=== PATIENT | female | born 1940 | race Caucasian/White ===

== ENCOUNTER 2016-10-13 06:56 | Day surgery (SDC) | payer MEDICARE, OTHER ==
[~2016-10-13 06:56] MED LIST: Cefuroxime 10 MG/ML SYRINGE EYELF SCH; Lidocaine 1% PF 2 ML SDV INJECT SCH; Pilocarpine 4% Ophth Soln 15 ML Bot EYELF SCH; Proparacaine 0.5% Ophth Soln 15 ML Bottle EYEBOTH SCH; Tetracaine 0.5% 2 ML Bottle EYELF SCH
[2016-10-13] MEDS: Ofloxacin 0.3% Ophth Soln 5 ML Bottle EYELF SCH ×3 (07:12→08:19)
[2016-10-13] MEDS: Apraclonidine 0.5% Ophth Soln 5 ML Bot EYELF SCH ×3 (07:17→08:19)
[2016-10-13] MEDS: Phenylephrine 2.5% Ophth Soln 2 ML Bot EYELF SCH ×5 (07:21→08:01)
--- NOTE | 2016-10-13 07:30 | PCM.PREANE ---
Preanesthetic Assessment - Anesthesia/Transfusion/Family Hx Anesthesia History: Prior Anesthesia Without Reaction Type of Anesthesia Reaction: Unknown, Other (see below) Type of Transfusion Reactions: Reports: Unknown - Review of Systems General: No Symptoms Pulmonary: No Symptoms Cardiovascular: No Symptoms (high cholesterol) Gastrointestinal: No symptoms Neurological: No Symptoms Other: Reports: None - Physical Assessment NPO Status Date: 10/12/16 NPO Status Time: 22:00 Pulse: 76 O2 Sat by Pulse Oximetry: 94 Respiratory Rate: 16 Blood Pressure: 138/75 Vital Signs: Last Vital Signs Temp 36.4 C 10/13/16 07:05 Pulse 76 10/13/16 07:05 Resp 16 10/13/16 07:05 BP 138/75 10/13/16 07:05 Pulse Ox 94 L 10/13/16 07:05 Height: 1.6 m Weight: 65.771 kg ASA Class: 2 Mental Status: Alert & Oriented x3 Airway Class: Mallampati = 2 Dentition: Reports: Normal Dentition ROM/Head Extension: Full Lungs: Clear to auscultation, Normal respiratory effort Cardiovascular: Regular Rate, Regular Rhythm - Allergies Allergies/Adverse Reactions: Allergies Allergy/AdvReac Type Severity Reaction Status Date / Time silicone Allergy Intermediate Rash Verified 10/12/16 14:01 Sulfa (Sulfonamide Allergy Unknown Rash Verified 10/12/16 14:01 Antibiotics) azithromycin [From Zithromax] AdvReac Intermediate Nausea Verified 10/12/16 14: 01 - Blood Blood Available: No Product(s) Available: None - Anesthesia Plan Pre-Op Medication Ordered: None Beta Roshni: Timolol Med Last Dose Date: 10/12/16 Med Last Dose Time: 18:00 - Acknowledgements Anesthesia Type Planned: MAC Pt an Appropriate Candidate for the Planned Anesthesia: Yes Alternatives and Risks of Anesthesia Discussed w Pt/Guardian: Yes Pt/Guardian Understands and Agrees with Anesthesia Plan: Yes PreAnesthesia Questionnaire HEENT History: Reports: Glaucoma Cardiovascular History: Reports: High cholesterol Gastrointestinal History: Reports: Diverticulosis Other OB/BYN History: hysterectomy Musculoskeletal History: Reports: Neck pain, chronic, Other (see below) Other Musculoskeletal History: Bone spurs so next was fused - Past Surgical History Other Musculoskeletal Surgeries/Procedures:: C spinal fusion - SUBSTANCE USE Smoking Status *Q: Former Smoker Tobacco Use Within Last Twelve Months: Cigarettes Second Hand Smoke Exposure: No Days Per Week of Alcohol Use: 0 Number of Drinks Per Day: 1 Total Drinks Per Week: 0 Recreational Drug Use History: No - HOME MEDS Home Medications: Home Meds Calcium Carb/D3/Mag AA Chelate [Coral Calcium Capsule] 1,000 mg PO BID 04/07/15 [History] Flaxseed Oil 1,000 mg PO DAILY 04/07/15 [History] Hypromellose [Systane Gel] 1 drop EYEBOTH BEDTIME 04/07/15 [History] Lutein 20 mg PO DAILY 04/07/15 [History] Multivitamin with Minerals [Multiple Vitamin] 1 tab PO DAILY 04/07/15 [History] [place]-3 Fatty Acids [[place]-3] 2,000 mg PO DAILY 04/07/15 [History] Timolol Maleate [Timoptic 0.25% Ophth Soln] 1 drop EYEBOTH DAILY 04/07/15 [ History] Ubidecarenone [Co Q-10] 200 mg PO BEDTIME 04/08/15 [History] [place] Q Plus 2 tab PO DAILY 02/12/16 [History] - CURRENT (IN HOUSE) MEDS Current Meds: Current Medications Apraclonidine HCl (Iopidine 0.5% Ophth Soln) 0 ml EYELF ASDIRECTED KACIE Stop: 10/13/16 18:00 Last Admin: 10/13/16 07:17 Dose: 1 drop Cefuroxime Sodium (Zinacef) 0 mg EYELF ASDIRECTED KACIE Stop: 10/13/16 18:00 Lidocaine HCl (Xylocaine-Mpf 1%) 2 ml INJECT ASDIRECTED KACIE Stop: 10/13/16 18:00 Ofloxacin (Ocuflox 0.3% Ophth Soln) 0 ml EYELF ASDIRECTED KACIE Stop: 10/13/16 18:00 Last Admin: 10/13/16 07:12 Dose: 1 drop Phenylephrine HCl ([place]-Synephrine 2.5% Ophth Soln) 0 ml EYELF ASDIRECTED KACIE Stop: 10/13/16 18:00 Last Admin: 10/13/16 07:21 Dose: 1 drop Pilocarp[place] HCl (Pilocar 4% Ophth Soln) 0 ml EYELF ASDIRECTED KACIE Stop: 10/13/16 18:00 Proparacaine HCl (Proparacaine 0.5% Ophth Soln) 0 ml EYEBOTH ASDIRECTED KACIE Stop: 10/13/16 18:00 Tetracaine (Pontocaine 0.5% Ophth Drops) 0 ml EYELF ASDIRECTED KACIE Stop: 10/13/16 18:00 Tropicamide (Mydriacyl 1% Ophth Soln) 0 ml EYELF ASDIRECTED KACIE Stop: 10/13/16 18:00 Last Admin: 10/13/16 07:25 Dose: 1 drop Preanesthetic Assessment - ANESTHESIA/TRANSFUSION/FAMILY HX Anesthesia/Transfusion History: No Prior Transfusion(s), Prior Anesthesia (no problems) Family History of Anesthesia Reaction: No - PHYSICAL ASSESSMENT O2 Sat by Pulse Oximetry: 94 RR: 16 Vital Signs: Last Vital Signs Temp 36.4 C 10/13/16 07:05 Pulse 76 10/13/16 07:05 Resp 16 10/13/16 07:05 BP 138/75 10/13/16 07:05 Pulse Ox 94 L 10/13/16 07:05 Height: 1.6 m Weight: 65.771 kg NPO Status Date: 10/12/16 NPO Status Time: 22:00 - ALLERGIES Allergies/Adverse Reactions: Allergies Allergy/AdvReac Type Severity Reaction Status Date / Time silicone Allergy Intermediate Rash Verified 10/12/16 14:01 Sulfa (Sulfonamide Allergy Unknown Rash Verified 10/12/16 14:01 Antibiotics) azithromycin [From Zithromax] AdvReac Intermediate Nausea Verified 10/12/16 14: 01
--- NOTE | 2016-10-13 08:31 | PCM48HPAN ---
Post Anesthesia Note - EVALUATION WITHIN 48HRS OF ANESTHETIC Vital Signs in Normal Range: Yes Patient Participated in Evaluation: Yes Respiratory Function Stable: Yes Airway Patent: Yes Cardiovascular Function Stable: Yes Hydration Status Stable: Yes Pain Control Satisfactory: Yes Nausea and Vomiting Control Satisfactory: Yes Mental Status Recovered: Yes
[2016-10-13 08:45] VITALS: BP 130/74
== END 2016-10-13 08:30 | disposition home or self-care (01) ==
LOC: JD.SDS 06:56
PROVIDERS: ATTEND Ophthalmology
DX: H26.9 Unspecified cataract (principal); E78.00 Pure hypercholesterolemia, unspecified; Z88.1 Allergy status to other antibiotic agents; Z88.2 Allergy status to sulfonamides; Z88.8 Allergy status to other drugs, medicaments and biological substances; Z90.49 Acquired absence of other specified parts of digestive tract; Z90.710 Acquired absence of both cervix and uterus; Z98.890 Other specified postprocedural states; Z79.899 Other long term (current) drug therapy; Z87.891 Personal history of nicotine dependence
CPT/HCPCS: 66984; J0697; A9270-GY; C1780

== ENCOUNTER 2016-11-10 07:50 | Day surgery (SDC) | payer MEDICARE, OTHER ==
[~2016-11-10 07:50] MED LIST changes: -Cefuroxime 10 MG/ML SYRINGE EYELF SCH; +Cefuroxime 10 MG/ML SYRINGE EYERT SCH; -Pilocarpine 4% Ophth Soln 15 ML Bot EYELF SCH; +Pilocarpine 4% Ophth Soln 15 ML Bot EYERT SCH; -Tetracaine 0.5% 2 ML Bottle EYELF SCH; +Tetracaine 0.5% 2 ML Bottle EYERT SCH
[2016-11-10] MEDS: Ofloxacin 0.3% Ophth Soln 5 ML Bottle EYERT SCH ×3 (08:07→09:42)
[2016-11-10] MEDS: Brimonidine 0.2% Ophth Soln 5 ML Bottle EYERT SCH ×3 (08:11→09:42)
[2016-11-10] MEDS: Phenylephrine 2.5% Ophth Soln 2 ML Bot EYERT SCH ×5 (08:15→09:27)
--- NOTE | 2016-11-10 08:29 | PCM.PREANE ---
Preanesthetic Assessment - Procedure Proposed Procedure: Right eye cataract extraction with implant - Anesthesia/Transfusion/Family Hx Anesthesia History: Prior Anesthesia Without Reaction Family History of Anesthesia Reaction: No Transfusion History: No Prior Transfusion(s) Type of Transfusion Reactions: Reports: Unknown Intubation History: Unknown - Review of Systems General: No Symptoms Pulmonary: No Symptoms Cardiovascular: No Symptoms Gastrointestinal: No symptoms Neurological: No Symptoms Other: Reports: None - Physical Assessment NPO Status Date: 11/09/16 NPO Status Time: 22:30 O2 Sat by Pulse Oximetry: 95 Respiratory Rate: 16 Vital Signs: Last Vital Signs Temp 36.6 C 11/10/16 07:50 Pulse 71 11/10/16 07:50 Resp 16 11/10/16 07:50 BP 136/75 11/10/16 07:50 Pulse Ox 95 11/10/16 07:50 Height: 1.6 m Weight: 65.771 kg ASA Class: 2 Mental Status: Alert & Oriented x3 Airway Class: Mallampati = 1 Dentition: Reports: Normal Dentition Thyro-Mental Finger Breadths: 3 Mouth Opening Finger Breadths: 5 ROM/Head Extension: Full Lungs: Clear to auscultation, Normal respiratory effort Cardiovascular: Regular Rate, Regular Rhythm - Allergies Allergies/Adverse Reactions: Allergies Allergy/AdvReac Type Severity Reaction Status Date / Time silicone Allergy Intermediate Rash Verified 11/09/16 13:04 Sulfa (Sulfonamide Allergy Unknown Rash Verified 11/09/16 13:04 Antibiotics) azithromycin [From Zithromax] AdvReac Intermediate Nausea Verified 11/09/16 13: 04 - Blood Blood Available: No - Anesthesia Plan Pre-Op Medication Ordered: None - Acknowledgements Anesthesia Type Planned: MAC Pt an Appropriate Candidate for the Planned Anesthesia: Yes Alternatives and Risks of Anesthesia Discussed w Pt/Guardian: Yes Pt/Guardian Understands and Agrees with Anesthesia Plan: Yes PreAnesthesia Questionnaire HEENT History: Reports: Glaucoma Cardiovascular History: Reports: High cholesterol Gastrointestinal History: Reports: Diverticulosis Other OB/BYN History: hysterectomy Musculoskeletal History: Reports: Neck pain, chronic, Other (see below) Other Musculoskeletal History: Bone spurs so next was fused Neurological History: Reports: None Psychiatric History: Reports: None Endocrine/Metabolic History: Reports: None 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 Immunologic History: Reports: None - Past Surgical History Other Musculoskeletal Surgeries/Procedures:: C spinal fusion Other Surgical History Comment: Hysterectomy, back surgery, appendectomy - SUBSTANCE USE Smoking Status *Q: Former Smoker Tobacco Use Within Last Twelve Months: Cigarettes Second Hand Smoke Exposure: No Days Per Week of Alcohol Use: 0 Number of Drinks Per Day: 1 Total Drinks Per Week: 0 Recreational Drug Use History: No - HOME MEDS Home Medications: Home Meds Calcium Carb/D3/Mag AA Chelate [Coral Calcium Capsule] 1,000 mg PO BID 04/07/15 [History] Flaxseed Oil 1,000 mg PO DAILY 04/07/15 [History] Hypromellose [Systane Gel] 1 drop EYEBOTH BEDTIME 04/07/15 [History] Lutein 20 mg PO DAILY 04/07/15 [History] Multivitamin with Minerals [Multiple Vitamin] 1 tab PO DAILY 04/07/15 [History] [place]-3 Fatty Acids [[place]-3] 2,000 mg PO DAILY 04/07/15 [History] Timolol Maleate [Timoptic 0.25% Ophth Soln] 1 drop EYEBOTH DAILY 04/07/15 [ History] [place] Q Plus 2 tab PO DAILY 02/12/16 [History] - CURRENT (IN HOUSE) MEDS Current Meds: Current Medications Brimonidine Tartrate (Alphagan 0.2% Ophth Soln) 1 ml EYERT ASDIRECTED KACIE Stop: 11/10/16 18:00 Last Admin: 11/10/16 08:11 Dose: 1 drop Cefuroxime Sodium (Zinacef) 0 mg EYERT ASDIRECTED KACIE Stop: 11/10/16 18:00 Lidocaine HCl (Xylocaine-Mpf 1%) 1 ml INJECT ASDIRECTED KACIE Stop: 11/10/16 18:00 Ofloxacin (Ocuflox 0.3% Ophth Soln) 0 ml EYERT ASDIRECTED KACIE Stop: 11/10/16 18:00 Last Admin: 11/10/16 08:07 Dose: 1 drop Phenylephrine HCl (Arron-Synephrine 2.5% Ophth Soln) 0 ml EYERT ASDIRECTED KACIE Stop: 11/10/16 18:00 Last Admin: 11/10/16 08:23 Dose: 1 drop Pilocarpine HCl (Pilocar 4% Ophth Soln) 0 ml EYERT ASDIRECTED KACIE Stop: 11/10/16 18:00 Proparacaine HCl (Proparacaine 0.5% Ophth Soln) 0 ml EYEBOTH ASDIRECTED KACIE Stop: 11/10/16 18:00 Tetracaine (Pontocaine 0.5% Ophth Drops) 0 ml EYERT ASDIRECTED KACIE Stop: 11/10/16 18:00 Tropicamide (Mydriacyl 1% Ophth Soln) 0 ml EYERT ASDIRECTED KACIE Stop: 11/10/16 18:00 Last Admin: 11/10/16 08:19 Dose: 1 drop
[2016-11-10 10:06] VITALS: BP 139/71
== END 2016-11-10 10:00 | disposition home or self-care (01) ==
LOC: JD.SDS 07:50
PROVIDERS: ATTEND Ophthalmology
PROC: 08RJ3JZ Replacement of Right Lens with Synthetic Substitute, Percutaneous Approach (ICD-10-PCS; principal; 2016-11-10)
DX: H25.811 Combined forms of age-related cataract, right eye (principal); H40.1234 Low-tension glaucoma, bilateral, indeterminate stage; H16.103 Unspecified superficial keratitis, bilateral; H16.223 Keratoconjunctivitis sicca, not specified as Sjogren's, bilateral; H52.31 Anisometropia; E78.00 Pure hypercholesterolemia, unspecified; Z98.1 Arthrodesis status; Z98.42 Cataract extraction status, left eye; Z96.1 Presence of intraocular lens; Z90.49 Acquired absence of other specified parts of digestive tract; Z90.710 Acquired absence of both cervix and uterus; Z98.890 Other specified postprocedural states; Z87.891 Personal history of nicotine dependence; Z83.511 Family history of glaucoma; Z83.518 Family history of other specified eye disorder; Z88.1 Allergy status to other antibiotic agents; Z88.2 Allergy status to sulfonamides; Z91.048 Other nonmedicinal substance allergy status; Z79.899 Other long term (current) drug therapy
CPT/HCPCS: 66984; A9270; J0697; C1780

== ENCOUNTER 2018-10-21 00:27 | Emergency (ER) | payer MEDICARE, OTHER ==
[2018-10-21 00:34] VITALS: BP 207/93
[2018-10-21] MEDS ORDERED: Ondansetron 4 MG/2 ML SDV IVPUSH ONE (00:43)
[2018-10-21] MEDS ORDERED: Aspirin 81 MG Tab.Chew PO ONE (00:43)
[2018-10-21] MEDS ORDERED: Sodium Chloride 0.9% 10 ML Syringe FLUSH PRN (00:43)
--- NOTE | 2018-10-21 00:49 | EDM.PDOC ---
ED HPI GENERAL MEDICAL PROBLEM - General Chief Complaint: Chest Pain Stated Complaint: CHEST PAIN Time Seen by Provider: 10/21/18 00:32 Source of Information: Reports: Patient History Limitations: Reports: No Limitations - History of Present Illness INITIAL COMMENTS - FREE TEXT/NARRATIVE: The patient presents with chest pain. She said this woke her up about 45 minutes ago. She went to bed feeling fine other then some cold symptoms with congestion and runny nose. She does not have much of a cough. She has some shortness of breath with it and nausea. She has no fever or chills. She was doing some work her basement the other day. They have water damage. She was pushing water and developed some chest pain. She has never had an DE before. She has a history of hypercholesterolemia but no diabetes or hypertension. She has no abdominal pain, vomiting, diarrhea or dysuria. She did not take any aspirin. Onset: Sudden Duration: Minutes: (45) Location: Reports: Chest Quality: Reports: Sharp Severity: Moderate (Better now) Improves with: Reports: None Worsens with: Reports: None Associated Symptoms: Reports: Chest Pain, Nausea/Vomiting, Shortness of Breath. Denies: Cough, Fever/Chills, Headaches Middle Chest Pain Score (Numeric/FACES): 4 - Related Data Allergies Allergy/AdvReac Type Severity Reaction Status Date / Time silicone Allergy Intermediate Rash Verified 10/21/18 00:34 Sulfa (Sulfonamide Allergy Unknown Rash Verified 10/21/18 00:34 Antibiotics) azithromycin [From Zithromax] AdvReac Intermediate Nausea Verified 10/21/18 00: 34 Home Meds: Home Meds Calcium Carb/D3/Mag AA Chelate [Coral Calcium Capsule] 1,000 mg PO BID 04/07/15 [History] Flaxseed Oil 1,000 mg PO DAILY 04/07/15 [History] Hypromellose [Systane Gel] 1 drop EYEBOTH BEDTIME 04/07/15 [History] Lutein 20 mg PO DAILY 04/07/15 [History] Multivitamin with Minerals [Multiple Vitamin] 1 tab PO DAILY 04/07/15 [History] [place]os[place]-3 Fatty Acids [Closplint-3] 2,000 mg PO DAILY 04/07/15 [History] Timolol Maleate [Timoptic 0.25% Ophth Soln] 1 drop EYEBOTH DAILY 04/07/15 [ History] [place] Q Plus 2 tab PO DAILY 02/12/16 [History] Past Medical History HEENT History: Reports: Glaucoma Cardiovascular History: Reports: High Cholesterol Gastrointestinal History: Reports: Diverticulosis Other [employer] WORK[employer] History: hysterectomy Musculoskeletal History: Reports: Neck Pain, Chronic, Other (See Below) Other Musculoskeletal History: Bone spurs so next was fused Neurological History: Reports: None Psychiatric History: Reports: None Endocrine/Metabolic History: Reports: None 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 Immunologic History: Reports: None - Past Surgical History HEENT Surgical History: Reports: Other (See Below) GI Surgical History: Reports: Appendectomy, Colonoscopy, Polypectomy, Other ( See Below) Musculoskeletal Surgical History: Reports: Other (See Below) Social & Family History - Tobacco Use Smoking Status *Q: Former Smoker Used Tobacco, but Quit: Yes Month/Year Tobacco Last Used: 30 years - Caffeine Use Caffeine Use: Reports: Coffee - Recreational Drug Use Recreational Drug Use: No ED ROS GENERAL - Review of Systems Review Of Systems: See Below Constitutional: Reports: No Symptoms HEENT: Reports: No Symptoms Respiratory: Reports: Shortness of Breath Cardiovascular: Reports: Chest Pain Endocrine: Reports: No Symptoms GI/Abdominal: Reports: Nausea. Denies: Abdominal Pain, Diarrhea, Vomiting : Reports: No Symptoms Musculoskeletal: Reports: No Symptoms Skin: Reports: No Symptoms Neurological: Reports: No Symptoms ED EXAM, GENERAL - Physical Exam Exam: See Below Exam Limited By: No Limitations General Appearance: Alert, No Apparent Distress Ears: Normal External Exam Nose: Normal Inspection Head: Atraumatic, Normocephalic Neck: Normal Inspection Respiratory/Chest: No Respiratory Distress, Lungs Clear, Normal Breath Sounds Cardiovascular: Regular Rate, Rhythm, No Edema, No Murmur GI/Abdominal: Soft, Non-Tender, No Organomegaly, No Mass Back Exam: Normal Inspection Extremities: Normal Inspection Neurological: Alert, Oriented, No Motor/Sensory Deficits EKG INTERPRETATION EKG Date: 10/21/18 Time: 00:29 Rhythm: NSR Rate (Beats/Min): 65 [place]: Normal P-Wave: Present QRS: Normal ST-T: Normal QT: Normal Course - Vital Signs Last Recorded V/S: Last Vital Signs Temp 97.6 F 10/21/18 00:32 Pulse 70 10/21/18 00:32 Resp 16 10/21/18 00:32 BP 207/93 H 10/21/18 00:32 Pulse Ox 97 10/21/18 00:32 - Orders/Labs/Meds Orders: Active Orders 24 hr Category Date Time Status Cardiac Monitoring [RC] . DIRECTED Care 10/21/18 00:43 Active EKG Documentation Completion [RC] ASDIRECTED Care 10/21/18 03:54 Active EKG Documentation Completion [RC] STAT Care 10/21/18 00:43 Active Oxygen Therapy [RC] PRN Care 10/21/18 00:43 Active Peripheral IV Care [RC] . DIRECTED Care 10/21/18 00:43 Active Chest 1V Frontal [CR] Stat Exams 10/21/18 00:43 Taken Sodium Chloride 0.9% [Saline Flush] Med 10/21/18 00:43 Active 10 ml FLUSH ASDIRECTED PRN ED Antiemetic Medication Reflex [OM.PC] Stat Oth 10/21/18 00:43 Ordered Peripheral IV Insertion Adult [OM.PC] Stat Oth 10/21/18 00:43 Ordered EKG 12 Lead [EK] Stat Ther 10/21/18 03:54 Ordered Medication Orders Sodium Chloride (Saline Flush) 10 ml FLUSH ASDIRECTED PRN PRN Reason: Keep Vein Open Last Admin: 10/21/18 00:46 Dose: 10 ml Labs: Laboratory Tests 10/21/18 10/21/18 10/21/18 Range/Units 00:35 00:35 03:10 WBC 8.42 (3.98-10.04) K/mm3 RBC 5.07 (3.98-5.22) M/mm3 Hgb 15.3 (11.2-15.7) gm/L Hct 47.6 H (34.1-44.9) % MCV 93.9 (79.4-94.8) fl MCH 30.2 (25.6-32.2) pg MCHC 32.1 L (32.2-35.5) g/dl RDW Std Deviation 47.1 H (36.4-46.3) fL Plt Count 286 (182-369) K/mm3 MPV 9.4 (9.4-12.3) fl Neut % (Auto) 49.7 (34.0-71.1) % Lymph % (Auto) 36.0 (19.3-51.7) % [place] % (Auto) 12.2 (4.7-12.5) % Eos % (Auto) 1.4 (0.7-5.8) Baso % (Auto) 0.5 (0.1-1.2) % Neut # (Auto) 4.18 (1.56-6.13) K/mm3 Lymph # (Auto) 3.03 (1.18-3.74) K/mm3 [place] # (Auto) 1.03 H (0.24-0.36) K/mm3 Eos # (Auto) 0.12 (0.04-0.36) K/mm3 Baso # (Auto) 0.04 (0.01-0.08) K/mm3 Sodium 142 (136-145) mEq/L Potassium 3.5 (3.5-5.1) mEq/L Chloride 105 (98-107) mEq/L Carbon Dioxide 28 (21-32) mEq/L Anion Gap 12.5 (5-15) BUN 11 (7-18) mg/dL Creatinine 1.1 H (0.55-1.02) mg/dL Est Cr Clr Drug Dosing 35.99 mL/min Estimated GFR (MDRD) 48 (>60) mL/min BUN/Creatinine Ratio 10.0 L (14-18) Glucose 125 H (83-115) mg/dL Calcium 9.2 (8.5-10.1) mg/dL Total Bilirubin 0.3 (0.2-1.0) mg/dL AST 28 (15-37) U/L ALT 36 (14-59) U/L Alkaline Phosphatase 106 (46-116) U/L Troponin I < 0.017 0.115 H* (0.00-0.056) ng/mL Total Protein 8.2 (6.4-8.2) g/dl Albumin 3.5 (3.4-5.0) g/dl Globulin 4.7 gm/dL Albumin/Globulin Ratio 0.7 L (1-2) Meds: Medications Generic Name Dose Route Start Last Admin Trade Name Freq PRN Reason Stop Dose Admin Sodium Chloride 10 ml 10/21/18 00:43 10/21/18 00:46 Saline Flush FLUSH 10 ml ASDIRECTED PRN Administration Keep Vein Open Discontinued Medications Generic Name Dose Route Start Last Admin Trade Name Freq PRN Reason Stop Dose Admin Aspirin 324 mg 10/21/18 00:43 10/21/18 00:53 Aspirin PO 10/21/18 00:44 324 mg ONETIME ONE Administration Al Hydroxide/Mg Hydroxide 30 0 ml 10/21/18 01:58 10/21/18 02:09 ml/ Lidocaine HCl 15 ml PO 10/21/18 01:59 45 ml ONETIME ONE Administration Famotidine 20 mg 10/21/18 01:58 10/21/18 02:10 Pepcid IVPUSH 10/21/18 01:59 20 mg ONETIME ONE Administration Ondansetron HCl 4 mg 10/21/18 00:43 10/21/18 00:52 Zofran IVPUSH 10/21/18 00:44 4 mg ONETIME ONE Administration - Re-Assessments/Exams Free Text/Narrative Re-Assessment/Exam: 10/21/18 00:48 I ordered an IV saline lock, EKG, CXR, labs, zofran 4mg IV, and aspirin. Her EKG shows a NSR with no acute changes. 10/21/18 04:03 Her CBC looks good. Her creatinine is slightly elevated at 1.1. Her GFR was a little low at 48. Her glucose was elevated at 125. Her troponin was negative. She still had some discomfort. I ordered some pepcid 20mg IV and a GI cocktail. I will kept the patient here for a 3 hour troponin and that was elevated at 0.115. She still has a little pain. So I ordered a nitro drip and a heparin bolus and drip. She is having a nonSTEMI and will need to go down to [place]. The patient request [facility]. I have called down there and talked with the hospitalist Dr Matthews and he accepted the patient. I also talked with the ER doctor Dr Blanton. I will transport the patient by ground ambulance. Departure - Departure Time of Disposition: 04:30 Disposition: DC/Tfer to Acute Hospital 02 Reason for Transfer *Q: Other Condition: Serious Clinical Impression: Non-STEMI (non-ST elevated myocardial infarction) Referrals: Raoul Osuna MD [Primary Care Provider] - Forms: ED Department Discharge - My Orders Last 24 Hours: My Active Orders 10/21/18 00:43 Cardiac Monitoring [RC] . DIRECTED EKG Documentation Completion [RC] STAT Oxygen Therapy [RC] PRN Peripheral IV Care [RC] . DIRECTED Chest 1V Frontal [CR] Stat Sodium Chloride 0.9% [Saline Flush] 10 ml FLUSH ASDIRECTED PRN ED Antiemetic Medication Reflex [OM.PC] Stat Peripheral IV Insertion Adult [OM.PC] Stat 10/21/18 03:54 EKG Documentation Completion [RC] ASDIRECTED EKG 12 Lead [EK] Stat - Assessment/Plan Last 24 Hours: My Active Orders 10/21/18 00:43 Cardiac Monitoring [RC] . DIRECTED EKG Documentation Completion [RC] STAT Oxygen Therapy [RC] PRN Peripheral IV Care [RC] . DIRECTED Chest 1V Frontal [CR] Stat Sodium Chloride 0.9% [Saline Flush] 10 ml FLUSH ASDIRECTED PRN ED Antiemetic Medication Reflex [OM.PC] Stat Peripheral IV Insertion Adult [OM.PC] Stat 10/21/18 03:54 EKG Documentation Completion [RC] ASDIRECTED EKG 12 Lead [EK] Stat
[2018-10-21] MEDS ORDERED: Alum Hydrox/Mag Hydrox/Simeth 30 ML, Lidocaine 2% 15 ML PO ONE ×2 (01:58)
[2018-10-21] MEDS ORDERED: Famotidine 20 MG/2 ML SDV IVPUSH ONE (01:58)
[2018-10-21] MEDS ORDERED: Heparin Sodium 5,000 Units/ML Vial IVPUSH ONE (04:06)
[2018-10-21] MEDS ORDERED: Heparin Sodium/D5W 25,000 UNITS/500 ML BAG IV SCH (04:15)
[2018-10-21] MEDS ORDERED: Nitroglycerin/D5W 25 MG/250 ML BOTTLE IV SCH ×2 (04:15→04:30)
--- NOTE | 2018-10-21 08:54 | CR ---
Chest: Frontal view of the chest was obtained. Comparison: Prior chest x-ray of 04/07/15. Heart size is normal. Slight tortuosity of the thoracic aorta is seen. Lungs show no acute parenchymal change. Previous cervical spine surgery is noted. Impression: 1. Nothing acute is seen on frontal chest x-ray. Diagnostic code #2
== END 2018-10-21 05:02 ==
LOC: JD.ED 00:27
DX: I21.4 Non-ST elevation (NSTEMI) myocardial infarction (principal); E78.00 Pure hypercholesterolemia, unspecified; Z79.899 Other long term (current) drug therapy; Z88.2 Allergy status to sulfonamides; Z88.1 Allergy status to other antibiotic agents; Z87.891 Personal history of nicotine dependence; Z91.09 Other allergy status, other than to drugs and biological substances
CPT/HCPCS: 36415; 71045; 80053; 84484; 85025; 93005; 96365; 96375; 99285; A9270; J1644; J2405; J3490; 93010

== ENCOUNTER 2024-12-06 15:41 | Emergency (ER) | payer MEDICARE ==
[2024-12-06 16:32] VITALS: PULSE 87
[2024-12-06 17:12] LABS: BASOPHILS PERCENT AUTO 0.2 % (0.0-1.0); EOSINOPHILS PERCENT AUTO 0.2 % (0.0-6.0); HEMATOCRIT 40.8 % (37.0-47.0); HEMOGLOBIN 13.4 gm/dl (12.0-16.0); IMMATURE GRAN PERCENT AUTO 1.6 % (0.0-0.4); LYMPHOCYTES ABSOLUTE AUTO 0.3 K/mm3 (1.0-4.8); LYMPHOCYTES PERCENT AUTO 5.3 % (24.0-44.0); MEAN CORPUSCULAR HEMOGLOBIN 30.5 pg (28.0-32.0); MEAN CORPUSCULAR HGB CONC 32.8 g/dl (32.0-36.0); MEAN CORPUSCULAR VOLUME 92.7 fl (83.0-99.0); MEAN PLATELET VOLUME 9.3 fl (9.4-12.3); MONOCYTES ABSOLUTE AUTO 0.4 K/mm3 (0.0-0.8); MONOCYTES PERCENT AUTO 5.9 % (0.0-8.0); NEUTROPHILS ABSOLUTE AUTO 5.5 K/mm3 (1.8-7.7); NEUTROPHILS PERCENT AUTO 86.8 % (41.0-71.0); PLATELET COUNT,PLT 237 K/mm3 (150-400); WHITE BLOOD CELL COUNT,WBC 6.27 K/mm3 (3.9-11.3)
[2024-12-06] MEDS: Acetaminophen 325 MG Tab PO ONE (17:12)
[2024-12-06] MEDS: Sodium Chloride 0.9% 500 ML IV ONE (17:12)
[2024-12-06] MEDS: Ondansetron 4 MG/2 ML SDV IVPUSH ONE (17:13)
[2024-12-06 17:27] LABS: APPEARANCE,URINE CLEAR (Clear); BILIRUBIN,URINE NEGATIVE (Negative); COLOR,URINE YELLOW (Yellow); GLUCOSE,URINE NEGATIVE (Negative); KETONES,URINE NEGATIVE (Negative); LEUKOCYTE ESTERASE,URINE TRACE (Negative); NITRITE,URINE NEGATIVE (Negative); OCCULT BLOOD,URINE TRACE-INTACT (Negative); PROTEIN,URINE 1+ (Negative); UROBILINOGEN,URINE 0.2 (0.2-1.0)
[2024-12-06 17:30] LABS: A/G RATIO 0.8 (1-2); ALANINE AMINOTRANSFERASE,ALT 27 U/L (14-59); ALBUMIN 3.3 g/dl (3.4-5.0); ALKALINE PHOSPHATASE 74 U/L (46-116); ANION GAP 12.9 (5-15); ASPARTATE AMNIOTRANSFERASE,AST 27 U/L (15-37); BILIRUBIN TOTAL 0.4 mg/dL (0.2-1.0); BLOOD UREA NITROGEN,BUN 12 mg/dL (7-18); CALCIUM 8.5 mg/dL (8.5-10.1); CARBON DIOXIDE,CO2 24 mEq/L (21-32); CHLORIDE,CL 101 mEq/L (98-107); EST CRCL DRUG DOSING (CG) 31.15 mL/min; ESTIMATED GFR 56 mL/min (>60); GLUCOSE RANDOM 98 mg/dL (70-99); MAGNESIUM 1.9 mg/dL (1.8-2.4); POTASSIUM,K 3.9 mEq/L (3.5-5.1); PROTEIN TOTAL,TP 7.7 g/dl (6.4-8.2); SODIUM,NA 134 mEq/L (136-145)
[2024-12-06 17:34] LABS: TROPONIN I HIGH SENSITIVITY < 4 pg/mL (<=51)
[2024-12-06 17:45] LABS: BACTERIA,URINE FEW /hpf (FEW); MUCUS,URINE FEW /hpf (FEW); SQUAMOUS EPITHELIAL CELLS,UR 0-5 /hpf (0-5); WBC,URINE 0-5 /hpf (0-5)
[2024-12-06 18:39] VITALS: BP 110/65
== END 2024-12-06 18:25 | disposition home or self-care (01) ==
LOC: JD.ED 15:41
DX: Z87.19 Personal history of other diseases of the digestive system (principal); R11.2 Nausea with vomiting, unspecified; E78.00 Pure hypercholesterolemia, unspecified; Z90.49 Acquired absence of other specified parts of digestive tract; Z79.82 Long term (current) use of aspirin; Z79.899 Other long term (current) drug therapy; Z91.048 Other nonmedicinal substance allergy status; Z88.1 Allergy status to other antibiotic agents; Z88.2 Allergy status to sulfonamides
CPT/HCPCS: 36415; 71045; 80053; 81001; 83735; 84484; 85025; 87426; 93005; 96374; 99284; A9270; J2405; J7030; 93010; 99283